=== PATIENT | male | born 1950 | race Caucasian/White ===

== ENCOUNTER 2021-12-07 18:59 | Emergency (ER) | payer OTHER ==
[2021-12-07 20:33] LABS: BASOPHILS # (AUTO) 0.1 10^3/uL (0.0-0.1); BASOPHILS % (AUTO) 0.6 %; EOSINOPHILS # (AUTO) 0.1 10^3/uL (0.0-0.7); EOSINOPHILS % (AUTO) 1.4 %; HCT - HEMATOCRIT 46.1 % (42.0-52.0); HGB - HEMOGLOBIN 14.9 g/dL (14.0-18.0); LYMPHOCYTES # (AUTO) 1.2 10^3/uL (1.5-3.5); LYMPHOCYTES % (AUTO) 12.9 %; MEAN CORPUSCULAR HEMOGLOBIN 30.5 pg (27.0-31.0); MEAN CORPUSCULAR HGB CONC 32.3 g/dL (32.0-36.0); MEAN CORPUSCULAR VOLUME 94.5 fL (80.0-94.0); MEAN PLATELET VOLUME 10.4 fL (7.4-11.4); MONOCYTES # (AUTO) 0.6 10^3/uL (0.0-1.0); MONOCYTES % (AUTO) 5.9 %; NEUTROPHILS # (AUTO) 7.4 10^3/uL (1.5-6.6); NEUTROPHILS % (AUTO) 78.8 %; PLT - PLATELET COUNT 237 10^3/uL (130-450); RED BLOOD COUNT 4.88 10^6/uL (4.70-6.10); WHITE BLOOD COUNT 9.4 x10^3/uL (4.8-10.8)
--- NOTE | 2021-12-07 20:34 | ED Physician Documentation ---
History of Present Illness - Stated complaint Stated Complaint: DIZZY, DRY MOUTH - Chief complaint Chief Complaint: Neuro - History obtained from History obtained from: Patient - History of Present Illness Timing: Today Pain level max: 0 Pain level now: 0 - Additonal information Additional information: patient c/o feeling fatigue all day today, at times lightheaded and dizzy. Patient and his (in ED at bedside) say this is unusual for him; he is usually energetic and active all day, but today he had to rest most of the day, and took a nap without improvement. Patient's says that at one point earlier in the day, he seemed slow to answer some questions, but this has resolved. Review of Systems Constitutional: reports: Fatigue. denies: Fever, Chills, Sweats Eyes: denies: Loss of vision, Decreased vision Cardiac: reports: Reviewed and negative Respiratory: reports: Reviewed and negative GI: reports: Reviewed and negative : denies: Dysuria, Frequency Musculoskeletal: reports: Reviewed and negative Neurologic: denies: Generalized weakness, Focal weakness, Numbness, Headache PD PAST MEDICAL HISTORY - Past Medical History Past Medical History: No - Allergies Allergies/Adverse Reactions: Allergies Allergy/AdvReac Type Severity Reaction Status Date / Time No Known Drug Allergies Allergy Verified 12/07/21 19:10 PD ED PE NORMAL - Vitals Vital signs reviewed: Yes - General General: Alert and oriented X 3, No acute distress, Well developed/nourished - HEENT HEENT: PERRL, EOMI, Moist mucous membranes - Neck Neck: Supple, no meningeal sign - Cardiac Cardiac: RRR, No murmur, No gallop, No rub - Respiratory Respiratory: No respiratory distress, Clear bilaterally - Abdomen Abdomen: Soft, Non tender - Derm Derm: Normal color, Warm and dry - Neuro Neuro: Alert and oriented X 3, load planner 2-12 intact, No motor deficit, No sensory deficit, Normal speech Eye Opening: Spontaneous Motor: Obeys Commands Verbal: Oriented GCS Score: 15 Results - Vitals Vitals: Oxygen O2 Source Room air - Labs Labs: Laboratory Tests 12/07/21 12/07/21 20:25 20:25 WBC 9.4 RBC 4.88 Hgb 14.9 Hct 46.1 MCV 94.5 H MCH 30.5 MCHC 32.3 RDW 12.0 Plt Count 237 MPV 10.4 Neut # (Auto) 7.4 H Lymph # (Auto) 1.2 L [place] # (Auto) 0.6 Eos # (Auto) 0.1 Baso # (Auto) 0.1 Absolute Nucleated RBC 0.00 Nucleated RBC % 0.0 Sodium 140 Potassium 4.1 Chloride 105 Carbon Dioxide 26 Anion Gap 9.0 BUN 19 Creatinine 1.2 Estimated GFR (MDRD) 60 L Glucose 135 H Calcium 9.2 Total Bilirubin 0.8 AST 16 ALT 17 Alkaline Phosphatase 50 Total Protein 7.4 Albumin 4.3 Globulin 3.1 Albumin/Globulin Ratio 1.4 Lipase 44 - Rads (name of study) CT head Radiology: Prelim report reviewed, See rad report PD MEDICAL DECISION MAKING - ED course Complexity details: reviewed results, re-evaluated patient, considered differential, d/w patient, d/w family ED course: unremarkable CBC, ER abdominal panel, CTH. He is in NAD and unremarkable exam as well as on reevaluation after tests resulted. He is noted to have high blood pressures during ED stay which improved without intervention. He is advised to follow up with his primary care provider for reevaluation, particularly for recheck of his high blood pressures. Return precautions reviewed. Departure - Departure Disposition: 01 Home, Self Care Clinical Impression: Fatigue Qualifiers: Fatigue type: unspecified Qualified Code(s): R53.83 - Other fatigue Condition: Good Instructions: ED Weakness UKO, ED Symptoms No Dx Comments: The cause of your symptoms is not apparent at this time. Your blood tests and CT scan are all normal (as we discussed, your blood sugar was in the 130s which is not unusual for a random blood sugar check in the emergency department, certainly not nearly high enough to cause symptoms nor immediate concern). Follow up with your primary care provider in 3-5 days if symptoms do not resolved Discharge Date/Time: 12/07/21 22:26
[2021-12-07 20:45] LABS: ALBUMIN 4.3 g/dL (3.2-5.5); ALBUMIN/GLOBULIN RATIO 1.4 (1.0-2.2); BILIRUBIN,TOTAL 0.8 mg/dL (0.2-1.0); CALCIUM 9.2 mg/dL (8.5-10.3); CREATININE 1.2 mg/dL (0.6-1.2); POTASSIUM 4.1 mmol/L (3.5-5.0); TOTAL PROTEIN 7.4 g/dL (6.7-8.2)
[2021-12-07 22:07] VITALS: BP 160/100
--- NOTE | 2021-12-07 22:13 | CT Report ---
PROCEDURE: HEAD WO INDICATIONS: dizziness, transient alteration of awareness TECHNIQUE: Noncontrast 4.5 mm thick angled axial sections acquired from the foramen magnum to the vertex. For r adiation dose reduction, the following was used: automated exposure control, adjustment of mA and/or kV according to patient size. COMPARISON: None. FINDINGS: Image quality: Excellent. CSF spaces: Basal cisterns are patent. No extra-axial fluid collections. Ventricles are normal in size and shape. Brain: No midline shift. No intracranial masses or hemorrhage. Noe-white matter interface is norm al. Skull and face: Calvarium and visualized facial bones are intact, without suspicious lesions. Sinuses: Visualized sinuses and mastoids are clear. IMPRESSION: Normal for age, source of altered mental status is not identified. Reviewed by: Misael Jorgensen MD on 12/07/2021 10:11 PM PDT Approved by: Misael Jorgensen MD on 12/07/2021 10:11 PM PDT Station ID: [id number]
== END 2021-12-07 22:26 | disposition home or self-care (01) ==
LOC: ED 18:59
DX: R53.83 Other fatigue (principal)
CPT/HCPCS: 36415; 80053; 83690; 85025; 99282; 99284